=== PATIENT | male | born 1965 | race Caucasian/White ===

== ENCOUNTER 2019-02-01 10:02 | Inpatient (IN) ==
[2019-02-01] MEDS ORDERED: ONDANSETRON 4 MG/2 ML VIAL IV ONE (10:28)
[2019-02-01] MEDS ORDERED: 0.9 % SODIUM CHLORIDE 1,000 ML IV ONE (10:28)
[2019-02-01] MEDS: HYDROmorphone 2 MG/ML VIAL IV SCH (10:49)
[2019-02-01 11:16] LABS: Basophils # (Auto) 0.1 K/mcL (0.0-0.3); Basophils % (Auto) 0.6 % (0.0-2.0); Eosinophils # (Auto) 0.1 K/mcL (0.0-0.7); Eosinophils % (Auto) 0.8 % (0.0-7.0); Lymphocytes # (Auto) 1.8 K/mcL (1.5-4.8); Lymphocytes % (Auto) 12.6 % (15.5-49.0); Mean Cell Volume 92.1 fL (80.0-100.0); Mean Corpuscular HGB Conc 33.7 g/dL (31.0-36.0); Platelet Count 204 K/mcL (140-440); RBC 5.26 M/mcL (4.50-5.90)
[2019-02-01 11:39] LABS: ALT/SGPT 12 U/l (0-40); Albumin 4.4 gm/dL (3.2-5.2); Albumin/Globulin Ratio 1.8 (1.0-2.3); Alkaline Phosphatase 93 U/L (39-117); Amylase 19 U/L (28-100); Blood Urea Nitrogen 10 mg/dl (6-20); Lipase 14 U/L (7-60)
[2019-02-01 12:27] LABS: Appearance,Urine CLEAR; Bilirubin,Urine NEG (NEG); Color,Urine STRAW; Glucose,Urine (UA) NEGATIVE (NEG); Leukocyte Esterase,Urine NEG /uL (NEG); Protein,Urine NEG (NEG); Specific Gravity,Urine 1.006 (1.000-1.035); Urine Blood NEG mg/dL (<0.03); Urobilinogen,Urine NEG (NEG)
--- NOTE | 2019-02-01 12:48 | Ultrasound Report ---
CLINICAL INFORMATION: Nausea, vomiting. Diarrhea for 3 days TECHNIQUE: Grayscale and color flow Doppler spectral and COMPARISON: Previous examination dated 12/31/2018 FINDINGS: Abnormal gallbladder. There is a single 10 mm gallstone. This is mobile. No abnormal gallbladder wall thickening or pericholecystic fluid Common bile duct remains prominent. Common bile duct measures approximate 7 mm. No detectable choledocholithiasis. No intrahepatic bile duct dilatation. As described previously the liver is enlarged and echogenic. This is consistent with hepatic steatosis. No focal mass. Liver contour is smooth. There is no ascites. Spleen is not imaged. Normal hepatopedal portal venous flow. Visualized portions of the pancreas are negative. Sonographic appearance is unchanged since 12/31/2018 IMPRESSION: 1. Cholelithiasis. 10 mm gallstone 2. Prominent common bile duct. No intrahepatic bile duct dilatation. No detectable choledocholithiasis 3. Enlarged echogenic liver consistent with hepatic steatosis. No focal mass 4. No interval change since 12/31/2018 Interpreted and Authenticated by: Jovanny Hyman 02/01/19
[2019-02-01] MEDS: HYDROmorphone 2 MG/ML VIAL IV PRN ×5 (13:10→23:31)
[2019-02-01] MEDS ORDERED: PROMETHAZINE 25 MG/ML VIAL IV ONE (13:11)
--- NOTE | 2019-02-01 13:20 | Emergency Department Note ---
General Adult HPI - General Chief complaint: Nausea/Vomiting/Diarrhea Stated complaint: Nausea/Vomiting x3 days Time Seen by Provider: 02/01/19 10:06 Source: family Mode of arrival: ambulatory Limitations: no limitations - History of Present Illness HPI Narrative: 54-year-old male presents with diffuse upper abdominal pain that is much worse in the right upper quadrant. He is been having this pain off and on for the last couple months but much more severe over the last 48 to 72 hours. He cannot eat anything or keep anything down. Has constant severe pain in vomiting. No diarrhea. No blood in his vomit or stools. States he has had his appendix out but no other abdominal surgeries. Eating does seem to make it worse however it is constant. No dysuria or frequency. No treatments prior to arrival. He did present to pulmonary hospital and they sent him here for further evaluation. He last ate and drank at 3:00 this morning when he tried to eat some ice cream but vomited. Has not had any liquids or food since then. - Related Data Home Medications Medication Instructions Recorded Confirmed Diazepam [Valium] 10 mg PO BID 12/15/17 12/15/17 HYDROcodone/APAP 10/325MG [[place] 1 - 2 tab PO Q4H PRN 12/15/17 12/15/17 10/325Mg] Levothyroxine [Synthroid] 75 mcg PO DAILY 12/15/17 12/15/17 Metoprolol Tartrate [Lopressor] 20 mg PO BID 12/15/17 12/15/17 Previous Rx's Medication Instructions Recorded Ibuprofen 800 mg PO Q6-8HP PRN #20 tab 12/15/17 Allergies Allergy/AdvReac Type Severity Reaction Status Date / Time Penicillins Allergy Severe Anaphylaxis Verified 12/15/17 08:50 Review of Systems All systems ED: reviewed and negative except as stated. Past Medical History - Past Medical History Medical history: Reports: COPD, other (Arthritis, chronic pain on opiates) Surgical history ED: Reports: appendectomy, other (Left shoulder) - Social History smoking status: Current every day smoker Alcohol use: Reports: Unknown Drug use: Reports: none Physical Exam Limitations: no limitations General appearance: alert, in no apparent distress Head: atraumatic, normocephalic, normal inspection Eye: Present: normal appearance. Absent: conjunctival injection ENT: mucous membranes moist Chest: Present: symmetric chest wall rise Respiratory: Present: normal lung sounds bilaterally. Absent: respiratory distress, rales/crackles, wheezes, accessory muscle use Cardiovascular: Present: regular rate, normal heart sounds Abdominal: Present: soft, tenderness (Positive upper abdominal tenderness throughout but much worse and guarding to right upper quadrant.), guarding (Positive right upper quadrant). Absent: distention, rigidity, mass Extremities: Present: normal inspection, normal capillary refill Neurological: Present: alert, oriented X3 Psychiatric: Present: normal affect, normal mood Skin: Present: warm, dry, intact, normal color. Absent: rash, cyanosis, diaphoresis, erythema Course Course Narrative: At [address] speak [address] Nye, surgeon transmission technician who agrees to accept this patient. He is in the surgery so I will go ahead and place admit orders. Vital Signs Temperature 98.6 F 02/01/19 10:02 Pulse Rate 57 L 02/01/19 10:02 Respiratory Rate 22 02/01/19 10:02 Blood Pressure 185/104 02/01/19 10:02 Pulse Oximetry (%) 99 02/01/19 10:02 Temperature 98.6 F 02/01/19 10:02 Pulse Rate 72 02/01/19 13:05 Respiratory Rate 22 02/01/19 10:02 Blood Pressure 161/116 02/01/19 12:46 Pulse Oximetry (%) 98 02/01/19 13:05 Medical Decision Making - Lab Data Lab results reviewed: Yes I reviewed the patient's lab results. Result diagrams: 02/01/19 10:37 02/01/19 10:37 Lab Results 02/01/19 02/01/19 02/01/19 Range/Units 10:37 10:37 12:00 WBC 14.3 H (4.5-11.0) K/mcL RBC 5.26 (4.50-5.90) M/mcL Hgb 16.3 (13.5-16.5) g/dL Hct 48.5 (41.0-55.0) % MCV 92.1 (80.0-100.0) fL MCH 31.0 (26.0-34.0) pg MCHC 33.7 (31.0-36.0) g/dL RDW 14.0 (11.5-14.5) % Plt Count 204 (140-440) K/mcL MPV 9.1 (7.4-10.4) fL Gran % 79.0 H (38.0-78.0) % Lymph % (Auto) 12.6 L (15.5-49.0) % Lee % (Auto) 7.0 (1.0-12.0) % Eos % (Auto) 0.8 (0.0-7.0) % Baso % (Auto) 0.6 (0.0-2.0) % Gran # 11.3 H (1.8-8.0) K/mcL Lymph # (Auto) 1.8 (1.5-4.8) K/mcL Lee # (Auto) 1.0 H (0.1-0.9) K/mcL Eos # (Auto) 0.1 (0.0-0.7) K/mcL Baso # (Auto) 0.1 (0.0-0.3) K/mcL Sodium 136 (133-145) mmol/L Potassium 3.2 L (3.3-5.1) mmol/L Chloride 96 (96-108) mmol/L Carbon Dioxide 25 (22-30) mmol/L Anion Gap 15.0 (8-16) BUN 10 (6-20) mg/dl Creatinine 0.9 (0.7-1.2) mg/dl GFR Calculation 98 Glucose 133 H (70-105) mg/dL Calcium 8.9 (8.6-10.4) mg/dl Total Bilirubin 0.5 (0.0-1.0) mg/dL AST 13 (0-37) U/l ALT 12 (0-40) U/l Alkaline Phosphatase 93 (39-117) U/L Total Protein 6.8 (5.9-8.4) gm/dL Albumin 4.4 (3.2-5.2) gm/dL Globulin 2.4 (2.2-3.7) gm/dL Albumin/Globulin Ratio 1.8 (1.0-2.3) Amylase 19 L (28-100) U/L Lipase 14 (7-60) U/L Urine Color Straw Urine Appearance Clear Urine pH 6.0 (5.0-9.0) Ur Specific [place] 1.006 (1.000-1.035) Urine Protein Neg (NEG) mg/dL Urine Glucose (UA) Negative (NEG) mg/dL Urine Ketones 5/tr A (NEG) mg/dL Urine Occult Blood Neg (<0.03) mg/dL Urine Nitrate Neg (NEG) Urine Bilirubin Neg (NEG) mg/dL Urine Urobilinogen Neg (NEG) mg/dL Ur Leukocyte Esterase Neg (NEG) /uL Ur Culture Indicated? No - Radiology Data Radiology results reviewed: Yes I reviewed the patient's radiology results. Disposition Pt seen by HEALTH PLAN SPECIALIST/PA only: No Clinical Impression: Cholelithiasis, Abdominal pain, Intractable vomiting Disposition: Xfer As Inpt ([facility]) Condition: Fair Referrals: Tao Sarkar PA-C [Primary Care Provider] - Akilah Nye MD [Physician] - Time of Disposition: 13:21
[2019-02-01] MEDS ORDERED: ONDANSETRON 4 MG/2 ML VIAL IV PRN (13:23)
[2019-02-01] MEDS ORDERED: PROMETHAZINE 25 MG/ML VIAL IV PRN (13:23)
[2019-02-01] MEDS: 0.9 % SODIUM CHLORIDE 1,000 ML IV SCH ×2 (14:10→15:51)
[2019-02-01] MEDS ORDERED: MAG HYDROX/AL HYDROX/SIMETH 30 ML ORAL.SUSP PO PRN (17:37)
[2019-02-01] MEDS ORDERED: MAG HYDROX/AL HYDROX/SIMETH 30 ML ORAL.SUSP ONE (17:43)
--- NOTE | 2019-02-01 18:53 | General Surg History&Physical ---
History of Present Illness Patient information: Note initiated : 02/01/19 at 6:51 pm Service Date, if different from initiated Date: [] Patient: Shelton Lopez 54 y/o M admitted on 02/01/19 for Laparoscopic Cholecystectomy. Chief Complaint: [] HPI: Mr. Lopez is a 54 year old M admitted with symptomatic gallstone disease. Patient has a four-month history of right upper quadrant pain with nausea and vomiting. He has a 7 weight loss over the past month. He has had constant nausea and vomiting with most intake. Upper abdominal ultrasound was done on 31 December 2018 and showed gallstone disease with normal ducts. He was not advised to have gallbladder cystic. Patient now has constant pain in epigastri um and right upper quadrant. He is admitted and will have cholecystectomy tomorrow. Review of Systems - Constitutional fatigue, headache(s), malaise, weight loss - EENT Nose, mouth and throat: abnormal hearing, disequilibrium, headache(s) - Cardiovascular no chest pain with activity, no palpatations, no rapid heart rate, no syncope - Respiratory dyspnea on exertion, no cough, no wheezing, no pain on inspirtation - Gastrointestinal abdominal pain, belching, bloating, cramping, dysphagia, heartburn, nausea, vomiting - Genitourinary no change in urinary stream, no urinary frequency, no urinary hesitancy - Musculoskeletal abnormal gait, arthralgias, back pain, muscle cramps, neck pain, radiating pain into limb - Integumentary no pruritus, no rash - Neurological abnormal hearing, dizziness, headache(s), no numbness, no vertigo - Psychiatric abnormal sleep pattern, anxiety, depression, mood swings, panic attacks, visual hallucinations - Endocrine no fatigue, no palpitations - Hematologic/Lymphatic no easy bleeding, no easy bruising, no lymphadenopathy - Allergic/Immunologic no tongue swelling, no throat swelling, no wheezing, no lip swelling Past History Past medical history: Chronic obstructive lung disease Chronic pain syndrome Hypothyroidism Degenerative disc disease Posttraumatic stress disorder Anxiety and depression Past surgical history: Open fixation left clavicle Appendectomy L5-S1 disc surgery Past family history: Mother alive age 69 with hypertension and coronary artery disease Father alive age 83 with diabetes mellitus Past social history: Every day smoker Denies alcohol use Use of CBD oil Medications and Allergies Home Medications Medication Instructions Recorded Confirmed Type Diazepam [Valium] 10 mg PO BID 12/15/17 02/01/19 History HYDROcodone/APAP 10/325MG [[place] 1 - 2 tab PO Q4H PRN 12/15/17 02/01/19 History 10/325Mg] Ibuprofen 800 mg PO Q6-8HP PRN #20 tab 12/15/17 02/01/19 Rx Levothyroxine [Synthroid] 175 mcg PO DAILY 12/15/17 02/01/19 History Metoprolol Tartrate [Lopressor] 20 mg PO BID 12/15/17 02/01/19 History Methadone [Dolophine] 25 mg PO QAM 02/01/19 02/01/19 History Taiban-3 Fatty Acids/Fish Oil 1 each PO DAILY 02/01/19 02/01/19 History [[place] 3 Fish Oil Softgel] Ondansetron [Zofran ODT] 4 mg SL Q4HP PRN 02/01/19 02/01/19 History Allergies Allergy/AdvReac Type Severity Reaction Status Date / Time Penicillins Allergy Severe Anaphylaxis Verified 12/15/17 08:50 Exam Temp Pulse Resp BP Pulse Ox 98.6 F 73 22 161/116 99 02/01/19 10:02 02/01/19 14:01 02/01/19 10:02 02/01/19 12:46 02/01/19 14:01 - General physical appearance well developed, well nourished, no distress, moderate pain - Eyes PERRL, normal ocular movement - ENT normal pinna, normal nares, normal mucosa, no congestion, decreased hearing - Head Head exam IM: Present: atraumatic, normal inspection, normocephalic - Neck no masses, no bruits, trachea midline, no lymphadenopathy, no venous distension - Cardiovascular Cardiovascular exam IM: Present: normal rate and rhythm, RRR, +S1, +S2. Absent: JVD, tachycardia - Respiratory normal expansion, normal respiratory effort, clear to auscultation - Abdomen Abdomen: Present: soft, tender (tenderness in the epigastrium and right upper quadrant), bowel sounds. Absent: distended Hernia: Present: none - Genitourinary Present: normal penis with no external lesions - Integumentary Present: no rash, no growths, no abnormal pigmentation - Neurologic Present: normal coordination, normal sensation - Musculoskeletal Present: normal gait, normal posture - Psychiatric Present: oriented to time, oriented to person, oriented to place, speech is normal, memory intact Assessment and Plan (1) Cholelithiasis and cholecystitis without obstruction Continue antibiotics and anti-emetics tonight Scheduled for cholecystectomy tomorrow Status: Acute (2) Chronic obstructive lung disease Continue home medications Status: Acute (3) Hypothyroidism Status: Acute (4) Anxiety with depression Continue home medications Status: Acute (5) Chronic pain syndrome Continue baseline dose of medication Status: Acute
[2019-02-01] MEDS ORDERED: POTASSIUM CHLORIDE 40 MEQ in DEXTROSE 5% IN WATER 500 ML IV ONE (19:05)
[2019-02-01] MEDS ORDERED: METOPROLOL TARTRATE 25 MG TABLET PO SCH (21:00)
[2019-02-01] MEDS: METOPROLOL TARTRATE 25 MG TABLET PO SCH (22:04)
[2019-02-01] MEDS: DIAZEPAM 5 MG TABLET PO SCH (22:04)
[2019-02-01] MEDS: METHADONE 5 MG TABLET PO SCH (22:05)
[2019-02-01] MEDS ORDERED: POTASSIUM CHLORIDE 20 MEQ/10 ML VIAL IV ONE (22:20)
[2019-02-02] MEDS: HYDROmorphone 2 MG/ML VIAL IV PRN ×3 (03:42→22:05)
[2019-02-02] MEDS: METHADONE 5 MG TABLET PO SCH ×2 (05:57→10:03)
[2019-02-02 06:57] LABS: Basophils # (Auto) 0.1 K/mcL (0.0-0.3); Basophils % (Auto) 0.8 % (0.0-2.0); Eosinophils # (Auto) 0.5 K/mcL (0.0-0.7); Eosinophils % (Auto) 4.4 % (0.0-7.0); Granulocytes % (Auto) 50.7 % (38.0-78.0); Lymphocytes # (Auto) 3.8 K/mcL (1.5-4.8); Lymphocytes % (Auto) 35.4 % (15.5-49.0); Mean Cell Volume 92.9 fL (80.0-100.0); Mean Corpuscular HGB Conc 33.9 g/dL (31.0-36.0); Monocytes # (Auto) 0.9 K/mcL (0.1-0.9); Monocytes % (Auto) 8.7 % (1.0-12.0); Platelet Count 187 K/mcL (140-440); RBC 4.42 M/mcL (4.50-5.90); Red Cell Distribution Width 13.8 % (11.5-14.5)
[2019-02-02 07:21] LABS: ALT/SGPT 11 U/l (0-40); Albumin 3.5 gm/dL (3.2-5.2); Albumin/Globulin Ratio 1.8 (1.0-2.3); Alkaline Phosphatase 71 U/L (39-117); Bilirubin,Direct < 0.2 mg/dL (0.0-0.3); Blood Urea Nitrogen 5 mg/dl (6-20); Gamma Glutamyl Transpeptidase 12 U/L (8-61); Uric Acid 5.4 mg/dL (2.5-8.0)
[2019-02-02] MEDS ORDERED: LEVOTHYROXINE 75 MCG TABLET PO SCH (07:30)
[2019-02-02] MEDS: 0.9 % SODIUM CHLORIDE 1,000 ML IV SCH ×5 (08:30→16:40)
[2019-02-02] MEDS ORDERED: METHADONE 5 MG TABLET PO SCH (09:00)
[2019-02-02] MEDS: METOPROLOL TARTRATE 25 MG TABLET PO SCH ×2 (10:03→22:04)
[2019-02-02] MEDS: DIAZEPAM 5 MG TABLET PO SCH ×2 (10:03→22:04)
[2019-02-02] MEDS: HYDROmorphone 2 MG/ML VIAL IV SCH (10:12)
[2019-02-02] MEDS ORDERED: LEVOFLOXACIN 500 MG/100 ML BAG IV ONE (11:43)
[2019-02-02] MEDS ORDERED: LIDOCAINE HCL/PF 100 MG/5 ML SYRINGE IV ONE (12:00)
[2019-02-02] MEDS ORDERED: fentaNYL 250 MCG/5 ML VIAL IV ONE (12:00)
[2019-02-02] MEDS ORDERED: hydrALAZINE 20 MG/ML VIAL IV ONE (12:00)
[2019-02-02] MEDS ORDERED: ROCURONIUM 10 MG/ML ML IV ONE (12:00)
[2019-02-02] MEDS ORDERED: ONDANSETRON 4 MG/2 ML VIAL IV ONE (12:00)
[2019-02-02] MEDS ORDERED: NEOSTIGMINE 1 MG/ML VIAL IV ONE (12:00)
[2019-02-02] MEDS ORDERED: DEXAMETHASONE 4 MG/ML VIAL IV ONE (12:00)
[2019-02-02] MEDS ORDERED: GLYCOPYRROLATE 0.2 MG/ML VIAL IV ONE (12:00)
[2019-02-02] MEDS ORDERED: MIDAZOLAM 2 MG/2 ML VIAL IV ONE (12:00)
[2019-02-02] MEDS ORDERED: KETAMINE 100 MG/ML ML IV ONE (12:00)
[2019-02-02] MEDS ORDERED: PROPOFOL 200 MG/20 ML VIAL IV ONE (12:00)
[2019-02-02] MEDS ORDERED: FLUMAZENIL 0.1 MG/ML ML IV PRN (12:54)
[2019-02-02] MEDS ORDERED: METHOCARBAMOL 1,000 MG/10 ML VIAL IV PRN (12:54)
[2019-02-02] MEDS ORDERED: IPRATROPIUM/ALBUTEROL 3 ML AMPUL.NEB NEB PRN (12:54)
[2019-02-02] MEDS ORDERED: KETOROLAC 30 MG/ML VIAL IV PRN (12:54)
[2019-02-02] MEDS ORDERED: ACETAMINOPHEN 1,000 MG/100 ML BOTTLE IV ONE (12:54)
[2019-02-02] MEDS ORDERED: MEPERIDINE 50 MG/ML INJECTION IM PRN (12:54)
[2019-02-02] MEDS ORDERED: MEPERIDINE 25 MG/ML SYRINGE IV PRN (12:54)
[2019-02-02] MEDS ORDERED: LACTATED RINGERS 250 ML IV PRN (12:54)
[2019-02-02] MEDS ORDERED: PROMETHAZINE 25 MG/ML VIAL IM PRN (12:54)
[2019-02-02] MEDS ORDERED: ONDANSETRON 4 MG/2 ML VIAL IV PRN ×2 (12:54→13:57)
[2019-02-02] MEDS ORDERED: PROMETHAZINE 25 MG/ML VIAL IV PRN ×3 (12:54→21:01)
[2019-02-02] MEDS ORDERED: BENZOCAINE/MENTHOL 1 LOZENGE PO PRN (12:54)
[2019-02-02] MEDS ORDERED: fentaNYL 100 MCG/2 ML VIAL IV PRN (12:54)
[2019-02-02] MEDS ORDERED: NALOXONE HCL 0.4 MG/ML VIAL IV PRN (12:54)
[2019-02-02] MEDS ORDERED: HYDROmorphone 2 MG/ML VIAL IV PRN (12:54)
[2019-02-02] MEDS ORDERED: LACTATED RINGERS 1,000 ML IV SCH (13:00)
--- NOTE | 2019-02-02 13:04 | Brief Operative Note ---
Date of procedure: 02/02/19 Pre-op diagnosis: CHOLELITHIASIS WITH CHOLECYSTITIS Post-op diagnosis: other (CHOLELITHIASIS WITH CHOLECYSTITIS) Procedure: LAPAROSCOPIC CHOLECYSTECTOMY Grafts/Implants: No Anesthesia: GETA Findings: DILATED GALLBLADDER WITH STONES AND ADHESIONS Complications: none Surgeon: Akilah Nye Estimated blood loss (cc): 5 Specimens Removed/Pathology: other (GFALLBLADDER) Condition: stable Disposition: PACU
[2019-02-02] MEDS ORDERED: MAG HYDROX/AL HYDROX/SIMETH 30 ML ORAL.SUSP PO PRN (13:57)
[2019-02-03] MEDS: 0.9 % SODIUM CHLORIDE 1,000 ML IV SCH ×3 (00:25→14:34)
[2019-02-03] MEDS: HYDROmorphone 2 MG/ML VIAL IV PRN ×2 (04:14→08:14)
[2019-02-03 06:32] LABS: Basophils # (Auto) 0.1 K/mcL (0.0-0.3); Basophils % (Auto) 0.4 % (0.0-2.0); Eosinophils # (Auto) 0.4 K/mcL (0.0-0.7); Eosinophils % (Auto) 2.6 % (0.0-7.0); Granulocytes % (Auto) 62.5 % (38.0-78.0); Lymphocytes # (Auto) 4.2 K/mcL (1.5-4.8); Lymphocytes % (Auto) 28.2 % (15.5-49.0); Mean Cell Volume 93.4 fL (80.0-100.0); Mean Corpuscular HGB Conc 33.3 g/dL (31.0-36.0); Monocytes % (Auto) 6.3 % (1.0-12.0); Platelet Count 231 K/mcL (140-440); RBC 4.82 M/mcL (4.50-5.90); Red Cell Distribution Width 13.9 % (11.5-14.5)
[2019-02-03 07:04] LABS: ALT/SGPT 31 U/l (0-40); Albumin 4.1 gm/dL (3.2-5.2); Albumin/Globulin Ratio 1.9 (1.0-2.3); Alkaline Phosphatase 83 U/L (39-117); Bilirubin,Direct < 0.2 mg/dL (0.0-0.3); Blood Urea Nitrogen 6 mg/dl (6-20); Gamma Glutamyl Transpeptidase 14 U/L (8-61); Uric Acid 4.9 mg/dL (2.5-8.0)
[2019-02-03] MEDS ORDERED: LEVOTHYROXINE 100 MCG TABLET PO SCH (07:30)
[2019-02-03] MEDS ORDERED: LEVOTHYROXINE 75 MCG TABLET PO SCH (07:30)
[2019-02-03] MEDS ORDERED: METHADONE 5 MG TABLET PO SCH (09:00)
[2019-02-03] MEDS: DIAZEPAM 5 MG TABLET PO SCH (10:38)
[2019-02-03] MEDS: METOPROLOL TARTRATE 25 MG TABLET PO SCH (10:38)
--- NOTE | 2019-02-03 13:24 | Operative Note ---
DATE OF OPERATION: 02/02/2019 PREOPERATIVE DIAGNOSIS: Cholelithiasis with cholecystitis. POSTOPERATIVE DIAGNOSIS: Cholelithiasis with cholecystitis. PROCEDURE: Laparoscopic cholecystectomy. DESCRIPTION OF PROCEDURE: Under general anesthesia, the patient's abdomen was prepped and draped in a sterile field. A supraumbilical midline incision was made and Veress needle was inserted. The abdomen was insufflated with 3 liters of CO2. A 12 mm port was placed. Laparoscope was placed. Dilated gallbladder with adhesions was noted. Under videoscopic guidance, a 12 mm port and two 5 mm ports were placed in the right subcostal region. The patient was placed in reverse Trendelenburg position and rotated to the left. The gallbladder was grasped in position. The cystic duct and cystic artery branches were poorly dissected back to the gallbladder. The cystic duct was clipped with five clips close to the gallbladder and divided. Cystic artery branches were clipped with 4 clips close to the gallbladder and divided. The gallbladder was then from the infrahepatic bed using electrocautery. The gallbladder was placed in an Endopouch and retrieved. Irrigating fluid was clear. CO2 was allowed to escape from the abdomen and the ports were removed. Fascia at the umbilicus was closed with interrupted 0 Vicryl. Skin incisions were closed with shagufta. The patient tolerated the procedure well. Tegaderm dressings were placed. He was awakened, extubated, and transferred to the postanesthetic care unit in stable, satisfactory condition. LCS:jennifer Job ID: [id number] Doc ID: [id number] Akilah Nye M.D.
--- NOTE | 2019-02-03 13:45 | Surgical Pathology Report ---
HISTOLOGY SPECIMEN MICROSCOPIC DIAGNOSIS GALLBLADDER, CHOLECYSTECTOMY: -- CHRONIC CHOLECYSTITIS. (DMT:roxy) GROSS DESCRIPTION Received in formalin designated gallbladder, is a purple-faustin gallbladder that measures 10.2 x 3.8 x 2.6 cm. There multiple metal clips identified, including one on the duct. The mucosa is steinberg and velvety. The wall is up to 0.2 cm thick. Grossly there are no stones identified. Top Bottom Attaching Machine Operator sections submitted in one cassette. (SCB:sln) Electronically Signed by: Chacorta Lozano M.D.
--- NOTE | 2019-02-03 14:19 | Discharge Summary ---
Providers - Providers Patient information: Note initiated : 02/03/19 at 2:16 pm Service Date, if different from initiated Date: [] Patient: Shelton Lopez 54 y/o M admitted on 02/01/19 for Laparoscopic Cholecystectomy. Chief Complaint: [] Date of admission: 02/01/19 Discharge date: 02/03/19 Attending physician: Akilah Nye Hospitalization Hospital course: 54-year-old male admitted 01 February with symptomatic gallstone disease. He underwent laparoscopic cholecystectomy on 02 February with findings of a single stone in the neck of the gallbladder. He has had an uneventful course and all of his preoperative symptoms have resolved. He is stable and has tolerated regular diet. He is therefore recommended for discharge. Discharge diagnosis: cholelithiasis with cholecystitis Reason for admission: abdominal pain nausea and vomiting Procedures: Laparoscopic cholecystectomy January 26 Pertinent studies/significant findings: None Complications: None Exam Temp Pulse Resp BP Pulse Ox 97.8 F 66 20 142/97 97 02/03/19 12:00 02/03/19 12:00 02/03/19 12:00 02/03/19 12:00 02/03/19 12:00 - General physical appearance well developed, well nourished, no distress - Eyes PERRL, normal ocular movement - ENT normal pinna, normal nares, normal mucosa, no hearing loss, no congestion - Head Head exam IM: Present: atraumatic, normocephalic - Neck no masses, no bruits, trachea midline, no lymphadenopathy, no venous distension - Cardiovascular Cardiovascular exam IM: Present: normal rate and rhythm - Respiratory normal expansion, normal respiratory effort, clear to percussion, clear to auscultation - Abdomen Abdomen: Present: soft, tender (mild tenderness around the port sites otherwise benign abdominal exam), bowel sounds Hernia: Present: none - Genitourinary Present: normal penis with no external lesions - Integumentary Present: no rash, no growths, no abnormal pigmentation - Neurologic Present: normal coordination, normal sensation - Musculoskeletal Present: normal gait, normal posture - Psychiatric Present: oriented to time, oriented to person, oriented to place, speech is normal, memory intact Discharge Plan - Patient/Caregiver Discharge Instructions Activity: increase activity as tolerated, resume usual activities as tolerated Diet: Low Fat - Follow up Plan Follow up with: Akilah Nye MD [Physician] - Tao Sarkar PA-C [Primary Care Provider] - Disposition: Home, Self-Care Prognosis: Good Rehab Potential: Good I certify that the patient requires SNF services.: No Overall status at discharge: patient is progressing back to baseline Pending Studies Resuscitation Status Full Code Diet Regular Diet Start FriFeb 02 1721 Diazepam (Valium) 10 mg PO BID [facility] Last Admin: 02/03/19 10:38 Dose: 10 mg Documented by: Admin: 02/02/19 22:04 Dose: 10 mg Documented by: MICHAEL Hydromorphone HCl (Dilaudid) 1 mg IV Q2HP PRN PRN Reason: PAIN LEVEL > 6 Last Admin: 02/03/19 08:14 Dose: 1 mg Documented by: Admin: 02/03/19 04:14 Dose: 1 mg Documented by: Admin: 02/02/19 22:05 Dose: 1 mg Documented by: Admin: 02/02/19 18:37 Dose: 1 mg Documented by: MICHAEL Sodium Chloride (Sodium Chloride 0.9%) 1,000 mls @ 125 mls/hr IV .Q8H [facility] Last Admin: 02/03/19 10:39 Dose: 125 mls/hr Documented by: Infusion: 02/03/19 10:38 Dose: 0 mls/hr Documented by: Admin: 02/03/19 00:25 Dose: 125 mls/hr Documented by: Infusion: 02/03/19 00:25 Dose: 125 mls/hr Documented by: Admin: 02/02/19 16:40 Dose: 125 mls/hr Documented by: Infusion: 02/02/19 16:40 Dose: 125 mls/hr Documented by: Admin: 02/02/19 14:00 Dose: 125 mls/hr Documented by: AEF4 Levothyroxine Sodium (Synthroid) 100 mcg PO ACB [facility] Last Admin: 02/03/19 07:34 Dose: 100 mcg Documented by: JUAN Levothyroxine Sodium (Synthroid) 75 mcg PO ACB [facility] Last Admin: 02/03/19 07:34 Dose: 75 mcg Documented by: JUAN Methadone HCl (Dolophine) 10 mg PO QAM JAMES Last Admin: 02/03/19 07:35 Dose: 10 mg Documented by: JUAN Metoprolol Tartrate (Lopressor) 25 mg PO BID JAMES Last Admin: 02/03/19 10:38 Dose: 25 mg Documented by: Admin: 02/02/19 22:04 Dose: 25 mg Documented by: MICHAEL Promethazine HCl (Phenergan) 25 mg IV HSP PRN PRN Reason: Sleep Last Admin: 02/02/19 22:04 Dose: 25 mg Documented by: MICHAEL Shift Summary 02/03/19 04:44 Shift Summary by aMg [place] Pt slept well tonight. Hasn't slept for several nights, and received sleeping meds last night. Still having 8/10 pain, but says it's more surgical pain than the internal pain he was having before. Up ad chris in the room. Voiding in the BR w/o problems, QS. Abdominal lap sites w/shagufta & tegaderm, scant drainage. Will be having EGD by Dr Nye Initialized on 02/03/19 04:44 - END OF NOTE
== END 2019-02-03 15:15 | disposition home or self-care (01) | DRG 419 ==
LOC: ED 10:02 → MEDSUR 14:49
PROVIDERS: ADMIT Family Medicine Adult Medicine; ATTEND Family Medicine Adult Medicine

== ENCOUNTER 2019-02-18 09:05 | Observation (INO) ==
[2019-02-18] MEDS ORDERED: PROMETHAZINE 25 MG/ML VIAL IV PRN (09:16)
[2019-02-18] MEDS ORDERED: ONDANSETRON 4 MG/2 ML VIAL IV PRN (09:16)
--- NOTE | 2019-02-18 09:55 | XRay Report ---
HISTORY: Infection post cholecystectomy, evaluate for pneumonia FINDINGS: The lungs are clear and well expanded, without evidence of pneumonia. There is no adenopathy or pleural effusion. The heart size is normal. No free intra-abdominal air is present. There are old healed fractures posteriorly in the left third fourth and fifth ribs and the left clavicle. There has been no significant change since 09/19/18. IMPRESSION: Normal exam, without evidence of pneumonia Interpreted and Authenticated by: Donnell Mayers 02/18/19
[2019-02-18] MEDS: 0.9 % SODIUM CHLORIDE 1,000 ML IV SCH ×2 (10:15→21:29)
[2019-02-18] MEDS: LEVOFLOXACIN 750 MG/150 ML BAG IV SCH (10:15)
[2019-02-18 10:57] LABS: C-Reactive Protein < 0.3 mg/dl (0.0-0.8)
[2019-02-18] MEDS ORDERED: IOPAMIDOL 100 ML BOTTLE IV ONE (11:20)
--- NOTE | 2019-02-18 11:54 | Cat Scan Report ---
CLINICAL INFORMATION: Fever and right upper quadrant pain, two weeks status post cholecystectomy COMPARISON: Ultrasound on 02/01/19 TECHNIQUE: Following oral contrast and the injection of intravenous contrast the patient was scanned during the portal venous phase from the diaphragm through the symphysis pubis. Sagittal and coronal reformats were created.. Radiation exposure was limited using dose reduction technology. FINDINGS: The lung bases are clear without evidence of pneumonia or pleural effusion. The liver is normal in size. There is subtle diffuse fatty infiltration. There is no evidence of liver mass or abscess area the bile ducts are nondilated. There are clips in the gallbladder fossa. There is no abscess in the gallbladder fossa. The intra and extrahepatic bile ducts are normal in caliber. The sood of the first and second portions of the duodenum are edematous and thickened. They measure up to 11 mm in thickness. The surrounding fat is noninflamed and there is no adjacent free fluid. The third and fourth portions of the duodenum are normal. The stomach is decompressed. There are thickened collapsed mucosal folds throughout the stomach. The oral contrast has passed through stomach and duodenum to normal jejunum and ileum. There is also contrast in the colon which is normal in caliber. The appendix is surgically absent. There is no evidence of diverticulitis. No adenopathy is present in the abdomen or pelvis. There are scattered plaques along the wall of normal caliber abdominal aorta and common iliac arteries. Urinary bladder is incompletely distended but appears grossly normal. Prostate and seminal vesicles appear homogeneous. IMPRESSION: No evidence of an abdominal or pelvic abscess following recent cholecystectomy. No evidence of bile leak Thickened sood of the proximal duodenum which may be due to duodenitis or edema/inflammation from the recent gallbladder surgery Interpreted and Authenticated by: Donnell Mayers 02/18/19
[2019-02-18] MEDS: metroNIDAZOLE 500 MG/100 ML BAG IV SCH ×2 (12:12→18:03)
[2019-02-18] MEDS: HYDROmorphone 2 MG/ML VIAL IV PRN ×3 (13:01→21:25)
[2019-02-18] MEDS: 0.9 % SODIUM CHLORIDE 10 ML SYRINGE IV SCH ×2 (13:43→21:11)
[2019-02-18 17:09] LABS: Appearance,Urine CLEAR; Bilirubin,Urine NEG (NEG); Color,Urine COLORLESS; Glucose,Urine (UA) NEGATIVE (NEG); Leukocyte Esterase,Urine NEG /uL (NEG); Protein,Urine NEG (NEG); Urine Blood NEG mg/dL (<0.03); Urobilinogen,Urine NEG (NEG)
[2019-02-18] MEDS: PANTOPRAZOLE 40 MG VIAL IV SCH (17:09)
[2019-02-18] MEDS ORDERED: LORazepam 2 MG/ML VIAL IV PRN (21:00)
[2019-02-18] MEDS ORDERED: LORazepam 2 MG/ML VIAL IV SCH (21:00)
[2019-02-18] MEDS: METOPROLOL TARTRATE 25 MG TABLET PO SCH (21:10)
[2019-02-18] MEDS: DIAZEPAM 5 MG TABLET PO SCH (21:10)
[2019-02-19] MEDS: HYDROmorphone 2 MG/ML VIAL IV PRN ×4 (00:19→08:23)
[2019-02-19] MEDS: metroNIDAZOLE 500 MG/100 ML BAG IV SCH ×2 (00:20→05:41)
[2019-02-19] MEDS: LORazepam 2 MG/ML VIAL IV PRN ×2 (01:12→05:41)
[2019-02-19] MEDS: 0.9 % SODIUM CHLORIDE 1,000 ML IV SCH ×3 (02:23→10:40)
[2019-02-19] MEDS: 0.9 % SODIUM CHLORIDE 10 ML SYRINGE IV SCH (05:42)
[2019-02-19 06:20] LABS: Basophils # (Auto) 0.1 K/mcL (0.0-0.3); Basophils % (Auto) 0.5 % (0.0-2.0); Eosinophils # (Auto) 0.4 K/mcL (0.0-0.7); Eosinophils % (Auto) 3.5 % (0.0-7.0); Granulocytes % (Auto) 58.2 % (38.0-78.0); Lymphocytes # (Auto) 3.3 K/mcL (1.5-4.8); Lymphocytes % (Auto) 29.7 % (15.5-49.0); Mean Cell Volume 92.4 fL (80.0-100.0); Mean Corpuscular HGB Conc 33.9 g/dL (31.0-36.0); Monocytes # (Auto) 0.9 K/mcL (0.1-0.9); Monocytes % (Auto) 8.1 % (1.0-12.0); Platelet Count 229 K/mcL (140-440); RBC 4.32 M/mcL (4.50-5.90); Red Cell Distribution Width 13.9 % (11.5-14.5)
[2019-02-19 06:38] LABS: ALT/SGPT 11 U/l (0-40); Albumin 3.7 gm/dL (3.2-5.2); Albumin/Globulin Ratio 1.9 (1.0-2.3); Alkaline Phosphatase 87 U/L (39-117); Bilirubin,Direct < 0.2 mg/dL (0.0-0.3); Blood Urea Nitrogen 7 mg/dl (6-20); Gamma Glutamyl Transpeptidase 18 U/L (8-61); Uric Acid 5.4 mg/dL (2.5-8.0)
[2019-02-19] MEDS ORDERED: LEVOTHYROXINE 150 MCG TABLET PO SCH (07:30)
[2019-02-19] MEDS ORDERED: LEVOTHYROXINE 25 MCG TABLET PO SCH (07:30)
[2019-02-19] MEDS: PANTOPRAZOLE 40 MG VIAL IV SCH (07:40)
[2019-02-19] MEDS ORDERED: METHADONE 5 MG TABLET PO SCH (09:00)
[2019-02-19] MEDS ORDERED: ENOXAPARIN 40 MG/0.4 ML SYRINGE SQ SCH (09:00)
[2019-02-19] MEDS ORDERED: VENLAFAXINE 150 MG CAP.XL.24H PO SCH (09:00)
--- NOTE | 2019-02-19 09:49 | General Surg History&Physical ---
History of Present Illness Patient information: Note initiated : 02/19/19 at 9:46 am Service Date, if different from initiated Date: [] Patient: Shelton Lopez 54 y/o M admitted on 02/18/19 for infection post cholecystectomy. Chief Complaint: [] HPI: Mister Guzman is a 54-year-old male 2 weeks after laparoscopic cholecystectomy. Seen in the emergency room yesterday and then followed up by Dr. Rich Nye in his office. He presented complaining of persistent right upper quadrant pain, some nausea, vomiting, fevers and chills. He was admitted for evaluation by Dr. Nye. Review of Systems - Constitutional chills, fever(s), weakness - Cardiovascular no chest pain - Respiratory no cough, no dyspnea - Gastrointestinal nausea, vomiting - Genitourinary no urinary frequency, no urinary urgency Past History Past medical history: COPD Chronic pain syndrome. Hypothyroidism. PTSD Anxiety Past surgical history: ORIF of his left clavicle. Appendectomy. Lower back discectomy Past social history: He smokes every day, uses CBD oil Medications and Allergies Home Medications Medication Instructions Recorded Confirmed Type Diazepam [Valium] 10 mg PO BID 12/15/17 02/18/19 History HYDROcodone/APAP 10/325MG [[place] 1 - 2 tab PO Q4H PRN 12/15/17 02/18/19 History 10/325Mg] Ibuprofen 800 mg PO Q6-8HP PRN #20 tab 12/15/17 02/18/19 Rx Levothyroxine [Synthroid] 175 mcg PO DAILY 12/15/17 02/18/19 History Metoprolol Tartrate [Lopressor] 25 mg PO BID 12/15/17 02/18/19 History Methadone [Dolophine] 10 mg PO QAM 02/01/19 02/18/19 History Purchase-3 Fatty Acids/Fish Oil 1 each PO DAILY 02/01/19 02/18/19 History [Purchase 3 Fish Oil Softgel] Ondansetron [Zofran ODT] 4 mg SL Q4HP PRN 02/01/19 02/18/19 History Venlafaxine HCl [Effexor Xr] 150 mg PO DAILY 02/01/19 02/18/19 History Ondansetron [Zofran ODT] 4 mg SL Q4-6HP PRN #20 tab 02/18/19 02/18/19 Rx Allergies Allergy/AdvReac Type Severity Reaction Status Date / Time Penicillins Allergy Severe Anaphylaxis Verified 02/18/19 08:57 adhesive tape AdvReac Mild Blister Verified 02/18/19 09:29 Exam Temp Pulse Resp BP Pulse Ox 98.1 F 67 16 135/91 97 02/19/19 08:23 02/19/19 08:23 02/19/19 08:23 02/19/19 08:23 02/19/19 08:23 - General physical appearance moderate distress (I did not do the exam that day, according to Dr. Alvarez spouse note from the office, he had some tenderness in the right upper quadrant but otherwise was unremarkable physical exam) Assessment and Plan (1) Abdominal pain Plan was to check some labs, get a CT scan, looking to see if he had possibly had a evidence of a bile leak or an abscess. Status: Acute Qualifiers: Abdominal location: right upper quadrant Qualified Code(s): R10.11 - Right upper quadrant pain (2) Chronic obstructive lung disease Status: Acute Priority: Medium Qualifiers: COPD type: emphysema Emphysema type: panlobular Qualified Code(s): J43.1 - Panlobular emphysema (3) Hypothyroidism Status: Acute Priority: Medium Qualifiers: Hypothyroidism type: acquired Qualified Code(s): E03.9 - Hypothyroidism, unspecified
[2019-02-19] MEDS: DIAZEPAM 5 MG TABLET PO SCH (09:50)
[2019-02-19] MEDS: METOPROLOL TARTRATE 25 MG TABLET PO SCH (09:50)
[2019-02-19] MEDS: LEVOFLOXACIN 750 MG/150 ML BAG IV SCH (10:00)
--- NOTE | 2019-02-19 10:04 | Discharge Summary ---
Providers - Providers Patient information: Note initiated : 02/19/19 at 10:02 am Service Date, if different from initiated Date: [] Patient: Shelton Lopez 54 y/o M admitted on 02/18/19 for infection post cholecystectomy. Chief Complaint: [] Date of admission: 02/18/19 Discharge date: 02/19/19 Attending physician: Mario Travis Hospitalization Hospital course: Patient was admitted after being seen in the emergency room and Dr. Nye in his clinic. Initially had a WBC of 21.5 with normal Lactate. He underwent lab evaluation, also had a CT scan. Results are in the rest of the chart. Essentially all of his lab work was entirely normal the next morning. LFTs were normal. White blood count was normal. CT scan demonstrated no evidence of a fluid collection, bile duct leak, abscess, or biliary ductal obstruction. His pain resolved overnight. On the day of discharge exam, he was ambulatory , in no distress, needed no analgesics, was comfortable, had a completely normal exam. Discharge diagnosis: Right Upper Quadrant Pain Reason for admission: Evaluation for pain Procedures: None Pertinent studies/significant findings: Labs completely normal. LFT's normal. Ct scan no evidence fluid collection, abscess, bile duct injury or obstruction. Complications: None Exam Temp Pulse Resp BP Pulse Ox 98.1 F 67 16 135/91 97 02/19/19 08:23 02/19/19 08:23 02/19/19 08:23 02/19/19 08:23 02/19/19 08:23 - General physical appearance well developed, well nourished, no distress - Eyes PERRL, normal ocular movement - Cardiovascular Cardiovascular exam IM: Present: normal rate and rhythm - Respiratory normal expansion, normal respiratory effort wheezing: bilateral - Abdomen Abdomen: Present: soft, non tender, surgical scars, wound (C&D with shagufta in place) Discharge Plan - Patient/Caregiver Discharge Instructions Discharge Summary: Home today. Early FU on Friday No need for antibiotics Activity: increase activity as tolerated Diet: Regular Diet - Follow up Plan Follow up with: Mario Travis MD [Physician] - Disposition: Home, Self-Care Prognosis: Good Rehab Potential: Fair I certify that the patient requires SNF services.: No Overall status at discharge: patient is back to baseline Pending Studies Resuscitation Status Full Code Diet Clear Liquid Diet Start Jessica Feb 18 918 Diazepam (Valium) 10 mg PO BID JAMES Last Admin: 02/19/19 09:50 Dose: 10 mg Documented by: Admin: 02/18/19 21:10 Dose: 10 mg Documented by: CYNTHIA Hydromorphone HCl (Dilaudid) 1 mg IV Q2HP PRN PRN Reason: PAIN LEVEL > 6 Last Admin: 02/19/19 08:23 Dose: 1 mg Documented by: Admin: 02/19/19 05:41 Dose: 1 mg Documented by: Admin: 02/19/19 03:12 Dose: 1 mg Documented by: Admin: 02/19/19 00:19 Dose: 1 mg Documented by: Admin: 02/18/19 21:25 Dose: 1 mg Documented by: Admin: 02/18/19 15:33 Dose: 1 mg Documented by: Admin: 02/18/19 13:01 Dose: 1 mg Documented by: MAX Levofloxacin (Levaquin) 750 mg in 150 mls @ 100 mls/hr IV Q24H JAMES; Protocol Last Infusion: 02/18/19 11:45 Dose: 0 mls/hr Documented by: Admin: 02/18/19 10:15 Dose: 100 mls/hr Documented by: NORMA Metronidazole (Flagyl) 500 mg in 100 mls @ 100 mls/hr IV Q6H JAMES; Protocol Last Admin: 02/19/19 05:41 Dose: 100 mls/hr Documented by: Infusion: 02/19/19 01:23 Dose: 0 mls/hr Documented by: Admin: 02/19/19 00:20 Dose: 100 mls/hr Documented by: Infusion: 02/18/19 21:11 Dose: 0 mls/hr Documented by: Admin: 02/18/19 18:03 Dose: 100 mls/hr Documented by: Infusion: 02/18/19 13:15 Dose: 0 mls/hr Documented by: Admin: 02/18/19 12:12 Dose: 100 mls/hr Documented by: NORMA Sodium Chloride (Sodium Chloride 0.9%) 1,000 mls @ 125 mls/hr IV .Q8H JAMES Last Admin: 02/19/19 07:14 Dose: 125 mls/hr Documented by: Infusion: 02/19/19 07:11 Dose: 0 mls/hr Documented by: Admin: 02/19/19 02:23 Dose: Not Given Documented by: Admin: 02/18/19 21:29 Dose: 125 mls/hr Documented by: Infusion: 02/18/19 18:15 Dose: 125 mls/hr Documented by: Admin: 02/18/19 10:15 Dose: 125 mls/hr Documented by: NORMA Levothyroxine Sodium (Synthroid) 150 mcg PO [facility] Last Admin: 02/19/19 07:41 Dose: 150 mcg Documented by: VINITA Levothyroxine Sodium (Synthroid) 25 mcg PO [facility] Last Admin: 02/19/19 07:41 Dose: 25 mcg Documented by: VINITA Lorazepam (Ativan) 0.5 mg IV Q4HP PRN PRN Reason: ANXIETY/SEDATION Last Admin: 02/19/19 05:41 Dose: 0.5 mg Documented by: Admin: 02/19/19 01:12 Dose: 0.5 mg Documented by: CYNTHIA Lorazepam (Ativan) 1 mg IV HSP PRN PRN Reason: Insomnia Last Admin: 02/18/19 21:10 Dose: 1 mg Documented by: CYNTHIA Methadone HCl (Dolophine) [facility] [place] Last Admin: 02/19/19 09:57 Dose: Not Given Documented by: VINITA Metoprolol Tartrate (Lopressor) 25 mg PO BID [facility] Last Admin: 02/19/19 09:50 Dose: 25 mg Documented by: Admin: 02/18/19 21:10 Dose: 25 mg Documented by: CYNTHIA Pantoprazole Sodium (Protonix) 40 mg IV BIDAC [facility] Last Admin: 02/19/19 07:40 Dose: 40 mg Documented by: Admin: 02/18/19 17:09 Dose: 40 mg Documented by: NORMA Promethazine HCl (Phenergan) 12.5 mg IV Q6HP PRN PRN Reason: Nausea And Vomiting Last Admin: 02/19/19 03:38 Dose: 12.5 mg Documented by: CYNTHIA Sodium Chloride (Saline Flush) 10 ml IV Q8 [facility] Last Admin: 02/19/19 05:42 Dose: Not Given Documented by: Admin: 02/18/19 21:11 Dose: Not Given Documented by: Admin: 02/18/19 13:43 Dose: Not Given Documented by: JAMIEF Venlafaxine HCl (Effexor Xr) 150 mg PO DAILY [facility] Last Admin: 02/19/19 09:50 Dose: 150 mg Documented by: VINITA Shift Summary 02/19/19 04:58 Shift Summary by Petra Kauffman A&O x4, up ad chris. Direct admit 02/[address] Nye's office for infection post lap maría 2 weeks ago. Reporting constant back/head pain d/t numerous injuries in past, Dilaudid given x3. 1 mg Ativan given at HS, 0.5 mg Ativan given at 0100. 12.5 mg IV Phenergan given x1. 20G to RFA infusing NS at 125. Intermittent antibiotics, Flagyl and Levaquin. Mildly hypertensive (systolics 140s), other VSS. Cleared of contact isolation d/t Hx of MRSA after second nasal swab came back negative yesterday. Possible DC home tomorrow if blood cultures are negative. Bedside report to follow. Initialized on 02/19/19 04:58 - END OF NOTE
== END 2019-02-19 11:03 | disposition home or self-care (01) ==
LOC: INTOOBSV 09:05 → MEDSUR 09:05
PROVIDERS: ADMIT Family Medicine Adult Medicine; ATTEND Surgery